=== PATIENT | male | born 1990 | race Caucasian/White ===

== ENCOUNTER 2017-07-27 14:09 | Emergency (ER) | payer BC ==
[2017-07-27 14:14] VITALS: BP 122/83; BMI 27.2
[2017-07-27] MEDS ORDERED: NORFLEX INJ IM ONE (15:04)
[2017-07-27] MEDS ORDERED: TORADOL 60 MG VIAL IM ONE (15:04)
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
[2017-07-27] MEDS ORDERED: NORFLEX INJ ONE (15:11)
[2017-07-27] MEDS ORDERED: TORADOL 30 MG VIAL ONE (15:11)
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
== END 2017-07-27 17:05 | disposition home or self-care (01) ==
LOC: ER 14:36
DX: S13.4XXA Sprain of ligaments of cervical spine, initial encounter (principal); S23.3XXA Sprain of ligaments of thoracic spine, initial encounter; R51 Headache; V49.9XXA Car occupant (driver) (passenger) injured in unspecified traffic accident, initial encounter
CPT/HCPCS: 70450; 72125; 72128; 96372; 99282; 99283; J1885; J2360